=== PATIENT | female | born 1970 | race Caucasian/White ===

== ENCOUNTER 2018-04-04 18:43 | Emergency (ER) | payer OTHER ==
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
[2018-04-04] MEDS ORDERED: Morphine 4 MG/ML VIAL ONE (20:36)
[2018-04-04] MEDS ORDERED: Propofol 10 mg/ml Inj (20 ML) IV ONE ×3 (20:48→21:46)
[2018-04-04] MEDS ORDERED: Propranolol 1 mg/mL Inj IVP ONE ×2 (20:50→21:46)
[2018-04-04] MEDS ORDERED: Propofol 10 mg/ml Inj (20 ML) ONE (20:57)
[2018-04-04 21:46] VITALS: TEMP 98.4
[2018-04-04 23:07] VITALS: BP 132/88; PULSE 80; RESP 14; O2SAT 99
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
--- NOTE | 2018-04-05 08:43 | RAD ---
Date of service: 04/04/2018 PROCEDURE: Radiographs of the Chest and Right Ribs. HISTORY: anterior and later rib pain COMPARISON: None available. TECHNIQUE: Frontal radiograph of the chest and multiple oblique radiographs of the right ribs were obtained. FINDINGS: Examination limited by habitus. RIGHT RIBS: No acute displaced fracture identified. LUNGS: No focal consolidation. Please note that chest x-ray has limited sensitivity for the detection of pulmonary masses. PLEURA: No significant pleural effusion. No definite pneumothorax. CARDIOVASCULAR: Heart size appears within normal limits. No pulmonary vascular congestion. No aortic atherosclerotic calcification present OTHER FINDINGS: Anterior dislocation and comminuted fracture of the right humeral head. IMPRESSION: Unremarkable radiographs of the chest and right ribs. No appreciable displaced right rib fracture. Anterior dislocation and comminuted fracture of the right humeral head.
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
== END 2018-04-04 23:17 | disposition home or self-care (01) ==
LOC: C.ER 18:43
DX: S43.004A Unspecified dislocation of right shoulder joint, initial encounter (principal); S42.291A Other displaced fracture of upper end of right humerus, initial encounter for closed fracture; V03.90XA Pedestrian on foot injured in collision with car, pick-up truck or van, unspecified whether traffic or nontraffic accident, initial encounter; Y92.410 Unspecified street and highway as the place of occurrence of the external cause
CPT/HCPCS: 23675; 71101; 73020; 73030; 73060; 96372; 96374; 96375; 99285; J1885; J2270; J2704